=== PATIENT | female | born 2000 | race Caucasian/White ===

== ENCOUNTER 2022-04-13 13:30 | Emergency (ER) | payer OTHER, SELFPAY ==
[2022-04-13 13:43] VITALS: BP 114/71; PULSE 86; RESP 20; TEMP 36.7; O2SAT 100
--- NOTE | 2022-04-13 13:49 | ED.URI ---
HPI - URI/Sore Throat General Chief Complaint: Upper Respiratory Infection Stated Complaint: wants strep test Time Seen by Provider: 04/13/22 13:45 Source: patient Mode of arrival: ambulatory Limitations: no limitations History of Present Illness HPI Narrative: Joseph Booth is a 21-year-old female who presents to the clinic with sore throat and fatigue for 4 days. She reports that she was sick last week with flulike symptoms -body aches, fever. She got better and then started getting worse again. She also reports low back pain currently. She denies congestion, cough, ear pain, fever, nausea, vomiting, urinary symptoms -dysuria, frequency, urgency. She denies contact with other sick people. MD elicited complaint: sore throat Related Data Home Medications Medication Instructions Recorded Confirmed cyproheptadine 4 mg tablet mg 04/13/22 norethindrone 1 mg-ethinyl tablet 04/13/22 estradiol 35 mcg tablet ([place]) Allergies Allergy/AdvReac Type Severity Reaction Status Date / Time No Known Allergies Allergy Unverified 10/22/18 15:22 Review of Systems Review of Systems: Pertinent positives per HPI. Patient denies any fever, chills, rash, headache, visual changes, dizziness, cough, runny nose, shortness of breath, chest pain, palpitations, nausea, vomiting, diarrhea, constipation, abdominal pain, or any urinary issues. PMFSH Comments At the time of my signature, I reviewed and agree with the nursing past medical, surgical, social, and family history. There is no relevant family history pertinent to the patient complaint. Exam Narrative: General: Well-developed, well nourished, in no apparent distress Head: Normocephalic, atraumatic Eyes: Pupils equally round and reactive to light bilaterally, EOM intact, sclera and conjunctive clear, no discharge, lids normal Ears: TMs intact and clear, ear canals clear, no drainage, grossly hearing normal. Nose: Nares patent, small amount of clear discharge, no inflammation, no sinus tenderness. Mouth: Oropharynx without lesions or masses, good dentition, MMM, erythematous oropharynx with 2+ tonsillar edema and exudate present bilaterally on the tonsils. Neck: Supple, trachea midline, enlargement of anterior cervical nodes, no enlargement posterior cervical nodes, no thyroid masses or goiter palpable. Cardio: Regular rate and rhythm, s1 and s2 normal, no murmur appreciated. Resp: Clear to auscultation bilaterally anteriorly and posteriorly, no rhonchi, rales, wheezing or rubs Course Course Emergency Course: Portions of this record may have been created with voice recognition software. Level of Care: Express Care Visit Vital Signs Vital signs: Vital Signs Temperature 36.7 C 04/13/22 13:43 Pulse Rate 86 04/13/22 13:43 Respiratory Rate 20 04/13/22 13:43 Blood Pressure 114/71 04/13/22 13:43 Pulse Oximetry 100 04/13/22 13:43 Temperature 36.7 C 04/13/22 13:43 Pulse Rate 86 04/13/22 13:43 Respiratory Rate 20 04/13/22 13:43 Blood Pressure 114/71 04/13/22 13:43 Pulse Oximetry 100 04/13/22 13:43 Vital signs reviewed MDM - URI/Sore Throat MDM Narrative Medical decision making narrative: The patient is a 21-year-old female who presents for sore throat and fatigue for 4 days. She does not have other symptoms including congestion or cough. She had a negative COVID test last week. Her strep test and mono test in clinic today were negative. I will send her strep swab for culture and treat her for strep throat based on physical exam findings and lack of other symptoms. The patient expressed understanding and agrees to the plan. Differential Diagnosis Differential diagnosis: Likely upper respiratory infection, otitis media, sinusitis, viral infection and other (mononucleosis, streptococcal pharyngitis, COVID-19) Discharge Plan Discharge Clinical Impression: Exudative pharyngitis Patient Disposition: Home, Self-Care Condition:
== END 2022-04-13 14:16 | disposition home or self-care (01) ==
PROVIDERS: Emergency Provider Nurse Practitioner Family
DX: J02.9 Acute pharyngitis, unspecified (principal)
CPT/HCPCS: 36416; 86308; 87081; 87880; 99203; G0463